=== PATIENT | male | born 1965 | race Two or more races ===

== ENCOUNTER 2018-10-05 06:11 | Day surgery (SDC) | payer OTHER ==
[2018-10-05] MEDS ORDERED: ceFAZolin 2 GM/50 ML 2 GM/50 ML BAG IV ONE (06:26)
[2018-10-05] MEDS ORDERED: LACTATED RINGERS 1,000 ML IV ONE (06:52)
[2018-10-05] MEDS ORDERED: BUPIVACAINE 0.25% PF 30 ML VIAL ONE (07:06)
--- NOTE | 2018-10-05 07:09 | ANESTHESIA ---
Pre-Anesthesia VS, & Labs - Diagnosis L index trigger finger - Procedure L Trigger finger release Vital Signs: Temp Pulse Resp BP Pulse Ox 36.3 C L 56 L 16 128/90 H 99 10/05/18 06:30 10/05/18 06:30 10/05/18 06:30 10/05/18 06:30 10/05/18 06:30 Height 5 ft 11 in Weight (kg) 98.43 kg - NPO >8 hours Home Medications and Allergies Home Medications: Ambulatory Orders No Known Home Medications 09/25/18 No Known Home Medications 09/25/18 Allergies/Adverse Reactions: Allergies Allergy/AdvReac Type Severity Reaction Status Date / Time No Known Drug Allergies Allergy Verified 09/25/18 10:22 Anes History & Medical History - Anesthetic History Anesthesia Complications: reports: No previous complications Family history of Anesthesia Complications: Denies Family history of Malignant Hyperthermia: Denies - Medical History Cardiovascular: reports: None Pulmonary: reports: None Gastrointestinal: reports: None Urinary: reports: None Musculoskeletal: reports: Other Endocrine/Autoimmune: reports: None Skin: reports: None - Surgical History Eyes Ears Nose Throat (EENT): Tonsil/Adenoidectomy Orthopedic: ACL reconstruction, Other Exam General: Alert, Oriented x3, Cooperative Dental: WNL Mouth Openin Fingerbreadth Neck Mobility: Normal Mallampati classification: II Thyromental Distance: 4-6 cm Respiratory: Lungs clear Cardiovascular: Regular rate Mental/Cognitive Status: Alert/Oriented X3 Plan Anesthesia Type: MAC Consent for Procedure(s) Verified and Reviewed: Yes Code Status: Attempt Resuscitation ASA classification: 2-Mild systemic disease Is this case an emergency?: No
[2018-10-05] MEDS ORDERED: BUPIVACAINE 0.25% PF 30 ML VIAL SUBQ ONE ×2 (08:03)
[2018-10-05] MEDS ORDERED: LIDOCAINE 1% 50 ML MDV ONE (08:04)
[2018-10-05] MEDS ORDERED: LIDOCAINE 1% 50 ML MDV SUBQ ONE ×2 (08:04)
[2018-10-05 08:40] VITALS: BP 138/92
[2018-10-05] MEDS ORDERED: oxyCODONE 5 MG TABLET PO PRN (08:49)
[2018-10-05] MEDS ORDERED: ONDANSETRON 4 MG/2 ML VIAL IVP PRN (08:49)
--- NOTE | 2018-10-05 09:03 | OPERATIVE REPORT ---
Operative Report - General Procedure Date: 10/05/18 Planned Procedure: Left Index Finger A1 Hiro Release Pre-Op Diagnosis: Left Index Finger Trigger Procedure Performed: Left Index Finger A1 Hiro Release Post Op Diagnosis: Same - Procedure Note Primary Surgeon: Charles Beck Secondary Surgeon: Ronnie Elaine Anesthesia Provider: None Estimated Blood Loss (mL): 1 Complications: None - Other Other Information/Narrative: Specific procedure: Left index finger A1 hiro release Postoperative Protocol: Dressing off in 5 days. No use of the operative finger for 2 weeks. Suture removal in 2 weeks. Indication For Surgery: 52M with many months of painful catching of the left index finger and intermittent inability to extend the finger. It is mostly present in the morning. Conservative treatment has failed. The risks, benefi ts, and alternatives were discussed. Risks include pain, bleeding, infection, damage to nearby structures, numbness, lack of symptom relief, need for further surgery, DVT, PE, stroke, and . Written consent was obtained. The patient was met in the preoperative holding on the day of the procedure. Operative extremity was signed. Consent was verified. They desire to proceed. They were brought to the operating room and placed in the supine position. A well-padded forearm tourniquet was applied. They were prepped and draped in the standard fashion. A surgical timeout was held will be confirmed the patient procedure, identity, allergies, antibiotics, image,s laterality, and finger. All were in agreement we proceeded. A mixture of 1% lidocaine and quarter percent Marcaine without epinephrine was placed in the operative field. Once adequate anesthesia had been obtained a transverse incision was made in the distal palmar crease overlying the affected digit. Blunt dissection was made with scissors down to the tendon sheath and the tissues were spread in line with the tendon and neurovascular structures. 3 blunt retractors were placed in the A1 hiro was identified. It was cut sharply with a knife from the distal to the proximal edge. A complete release was confirmed with the use of an elevator. Synovitis and thickening of the tendons were seen underneath it. The patient then flexed the digit and extended it without any catching. The wound was irrigated copiously and closed with horizontal mattress sutures. A sterile dressing was applied. He was transferred to the recovery room in good condition.
== END 2018-10-05 06:12 | disposition home or self-care (01) ==
LOC: SDS 06:11
PROVIDERS: ATTEND Orthopaedic Surgery
PROC: 0LN80ZZ Release Left Hand Tendon, Open Approach (ICD-10-PCS; principal; 2018-10-05 07:30)
DX: M65.322 Trigger finger, left index finger (principal)
CPT/HCPCS: 26055; J0690; J7120

== ENCOUNTER 2019-11-15 00:24 | Emergency (ER) | payer OTHER ==
[2019-11-15 00:33] VITALS: BP 155/85
--- NOTE | 2019-11-15 00:59 | ED Physician Documentation ---
History of Present Illness - Stated complaint Stated Complaint: SOA/COUGH/WHEEZING - Chief complaint Chief Complaint: Resp - History obtained from History obtained from: Patient (Patient is a 53-year-old male who presents with a chief complaint of cough, wheezing and shortness of breath. Patient reports he was at cold and flu symptoms off and on for the last week but tonight developed some shortness of breath with some mild wheezing he reports a history of similar episodes previously when he has had cold symptoms or influenza. He denies any hemoptysis or lower extremity swelling denies chest pain denies any history of pulmonary embolism or DVT denies headaches, neck pain, rashes denies fevers currently.) Review of Systems Constitutional: reports: Reviewed and negative Eyes: reports: Reviewed and negative Ears: reports: Reviewed and negative Nose: reports: Reviewed and negative Throat: reports: Reviewed and negative Cardiac: reports: Reviewed and negative Respiratory: reports: Dyspnea, Cough, Wheezing GI: reports: Reviewed and negative : reports: Reviewed and negative Skin: reports: Reviewed and negative Musculoskeletal: reports: Reviewed and negative Neurologic: reports: Reviewed and negative Psychiatric: reports: Reviewed and negative Endocrine: reports: Reviewed and negative Immunocompromised: reports: Reviewed and negative PD PAST MEDICAL HISTORY - Past Medical History Cardiovascular: None Respiratory: None Endocrine/Autoimmune: None GI: None : None HEENT: None Psych: None Musculoskeletal: Other Derm: None - Past Surgical History Ortho: ACL reconstruction, Other HEENT: Tonsil/Adenoidectomy - Present Medications Home Medications: Ambulatory Orders Medication Instructions Recorded Confirmed Albuterol Sulf [Ventolin Hfa 1 - 2 puffs INH Q4HR PRN #1 inhaler 11/15/19 Inhaler] Lisinopril [Zestril] 10 mg PO DAILY 11/15/19 11/15/19 Simvastatin 10 mg PO DAILY 11/15/19 11/15/19 predniSONE [Prednisone] 50 mg PO DAILY #5 tablet 11/15/19 - Allergies Allergies/Adverse Reactions: Allergies Allergy/AdvReac Type Severity Reaction Status Date / Time No Known Drug Allergies Allergy Verified 11/15/19 00:33 PD ED PE NORMAL - Vitals Vital signs reviewed: Yes - General General: Alert and oriented X 3, No acute distress, Well developed/nourished - HEENT HEENT: Atraumatic, PERRL, Ears normal, Moist mucous membranes, Pharynx benign, Dentition benign - Neck Neck: Supple, no meningeal sign, No adenopathy, No JVD - Cardiac Cardiac: RRR, No murmur, Strong equal pulses - Respiratory Respiratory: No respiratory distress, Clear bilaterally, Other (mild diffuse wheezing without resp distress, no use of accessory muscle, trachea midline, no crackles. 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, No motor deficit, No sensory deficit, Normal speech - Psych Psych: Normal mood, Normal affect Results - Vitals Vitals: Vital Signs - 24 hr 11/15/19 00:29 Temperature 37.0 C Heart Rate 85 Respiratory 16 Rate Blood Pressure 155/85 H O2 Saturation 98 Oxygen O2 Source Room air - EKG (time done) 01:07 Rate: Other (no stemi) - Labs Labs: Laboratory Tests 11/15/19 01:05 Troponin I High Sens < 2.3 L PD MEDICAL DECISION MAKING - ED course Complexity details: re-evaluated patient (02:28 after receiving breathing treatment patient has clear lung sounds, feels much better.), considered differential (hx and pe are consistent with viral syndrome and reactive airway disease. hx and exam not consistent with acs, cannot perc patient out because of age otherwise all perc screening is negative.) Departure - Departure Disposition: 01 Home, Self Care Clinical Impression: Dyspnea Qualifiers: Dyspnea type: unspecified Qualified Code(s): R06.00 - Dyspnea, unspecified Reactive airway disease Qualifiers: Asthma severity: unspecified severity Asthma persistence: unspecified Asthma complication type: uncomplicated Qualified Code(s): J45.909 - Unspecified asthma, uncomplicated Condition: Stable Instructions: ED Reactive Airway Disease Follow-Up: FABIEN MORALES MD [Primary Care Provider] - 11/15/19 Prescriptions: Albuterol Sulf [Ventolin Hfa Inhaler] 1 - 2 puffs INH Q4HR PRN #1 inhaler PRN Reason: Shortness Of Air/Wheezing predniSONE [Prednisone] 50 mg PO DAILY #5 tablet
[2019-11-15] MEDS ORDERED: predniSONE 20 MG TABLET PO STA (01:01)
--- NOTE | 2019-11-15 01:37 | XRAY Report ---
Reason: sob Procedure Date: 11/15/2019 Accession Number: [id number] / [id number] Procedure: XR - Chest 2 View X-Ray CPT Code: 26261 Final Report FULL RESULT: EXAM: CHEST RADIOGRAPHY EXAM DATE: 11/15/2019 01:27 AM. CLINICAL HISTORY: Sob. COMPARISON: None. TECHNIQUE: 2 views. FINDINGS: Lungs/Pleura: No focal opacities evident. No pleural effusion. No pneumothorax. Normal volumes. Mediastinum: Heart and mediastinal contours are unremarkable. Other: None. IMPRESSION: Normal 2-view chest radiography. [facility]
[2019-11-15] MEDS ORDERED: IPRATROPIUM/ALBUTEROL 3 ML NEB INH STA (02:19)
== END 2019-11-15 02:43 | disposition home or self-care (01) ==
LOC: ED 00:24
DX: J45.909 Unspecified asthma, uncomplicated (principal)
CPT/HCPCS: 36415; 71046; 84484; 93005; 94664; 99283; 99284; J7512

== ENCOUNTER 2021-08-31 08:15 | Outpatient (CLI) | payer OTHER ==
--- NOTE | 2021-08-31 13:21 | XRAY Report ---
PROCEDURE: Knee 4 View RT INDICATIONS: RIGHT KNEE PAIN TECHNIQUE: 3 views of the right knee(s) were acquired. AP weightbearing views of both knees. COMPARISON: August 06, 2015. FINDINGS: BONES/JOINT: No acute, displaced fracture or dislocation. Right: Trace suprapatellar joint effusion.Mild narrowing of the medial compartment joint space. Tibia l spine osteophytosis. Left: Anterior cruciate ligament repair. Moderate to advanced medial and moderate lateral joint space loss with osteophytosis. SOFT TISSUES: No significant abnormality. IMPRESSION: 1.Mild right medial compartment joint space loss. Reviewed by: Clement Hooks MD on 08/31/2021 1:08 PM PST Approved by: Clement Hooks MD on 08/31/2021 1:08 PM PST Station ID: [id number]
== END 2021-08-31 23:59 | disposition home or self-care (01) ==
LOC: DI.N 08:15
PROVIDERS: ATTEND Physician Assistant
DX: M25.861 Other specified joint disorders, right knee (principal); M25.561 Pain in right knee

== ENCOUNTER 2022-06-22 10:39 | Day surgery (SDC) | payer OTHER ==
[2022-06-22] MEDS ORDERED: PROPOFOL 500 MG/50 ML 500 MG/50 ML VIAL ONE (11:03)
[2022-06-22] MEDS ORDERED: LACTATED RINGERS 1,000 ML IV ONE ×2 (11:03→12:17)
[2022-06-22] MEDS ORDERED: MIDAZOLAM 2 MG/2 ML VIAL ONE (11:05)
--- NOTE | 2022-06-22 11:09 | ANESTHESIA ---
Pre-Anesthesia VS, & Labs - Diagnosis screening - Procedure colonoscopy Height: 5 ft 11 in Weight (kg): 99.1 kg Body Mass Index: 30.4 BMI Classification: Obese - NPO >8 hours Home Medications and Allergies Home Medications: Ambulatory Orders PredniSONE [PredniSONE INTENSOL] 06/21/22 PredniSONE [PredniSONE INTENSOL] 06/21/22 Allergies/Adverse Reactions: Allergies Allergy/AdvReac Type Severity Reaction Status Date / Time No Known Drug Allergies Allergy Verified 11/15/19 00:33 Anes History & Medical History - Anesthetic History Anesthesia Complications: reports: No previous complications Family history of Anesthesia Complications: Denies Family history of Malignant Hyperthermia: Denies - Medical History Cardiovascular: reports: None Pulmonary: reports: None Gastrointestinal: reports: None Urinary: reports: None Musculoskeletal: reports: Other Endocrine/Autoimmune: reports: None Skin: reports: None - Surgical History Eyes Ears Nose Throat (EENT): reports: Tonsil/Adenoidectomy Orthopedic: reports: ACL reconstruction, Other Exam General: Alert, Oriented x3, Cooperative Dental: WNL Mouth Openin Fingerbreadth Neck Mobility: Normal Mallampati classification: II Thyromental Distance: 4-6 cm Respiratory: Lungs clear, Normal breath sounds, No respiratory distress Cardiovascular: Regular rate Neurological: Normal speech Mental/Cognitive Status: Alert/Oriented X3, Normal for patient Cognitive Status: Within normal limits Plan Anesthesia Type: Total IV Consent for Procedure(s) Verified and Reviewed: Yes Code Status: Attempt Resuscitation ASA classification: 2-Mild systemic disease Is this case an emergency?: No
[2022-06-22] MEDS ORDERED: SIMETHICONE 40 MG/0.6 ML 30 ML BOTTLE PO ONE (12:04)
[2022-06-22 12:59] VITALS: BP 129/70
--- NOTE | 2022-06-22 13:18 | ANESTHESIA POST OP EVALUATION ---
Anesthesia Post Eval - Post Anesthesia Eval Vitals: Last Vital Signs Temp 36.6 C 06/22/22 12:55 Pulse 68 06/22/22 12:55 Resp 16 06/22/22 12:55 BP 129/70 06/22/22 12:55 Pulse Ox 99 06/22/22 12:55 O2 Flow Rate CV Function Including HR & BP: Stable Pain Control: Satisfactory Nausea & Vomiting: Negative Mental Status: Baseline Respiratory Status: Airway Patent Hydration Status: Satisfactory Anesthesia Complications: None
== END 2022-06-22 10:40 | disposition home or self-care (01) ==
LOC: SDS 10:39
PROVIDERS: ATTEND Surgery
DX: Z12.11 Encounter for screening for malignant neoplasm of colon (principal); N40.0 Benign prostatic hyperplasia without lower urinary tract symptoms; E66.9 Obesity, unspecified; Z68.30 Body mass index [BMI] 30.0-30.9, adult
CPT/HCPCS: 45378; A9270; J7120

== ENCOUNTER 2023-03-19 06:59 | Outpatient (CLI) | payer OTHER ==
--- NOTE | 2023-03-21 13:32 | MRI Report ---
PROCEDURE: SHOULDER WO - RT INDICATIONS: SHOULDER PAIN TECHNIQUE: Noncontrast oblique coronal T2 fast spin echo with fat saturation, oblique sagittal T1 spin echo and T2 fast spin echo with fat saturation, axial T1 spin echo and T2 fast spin echo with fat saturation t hrough the shoulder. COMPARISON: None. FINDINGS: Image quality: Excellent. Rotator cuff: Severe tendinosis of the supraspinatus tendon. There is high-grade partial-thickness te ar of the distal supraspinatus tendon involving the bursal surface and footprint. Moderate infraspinatus and subscapularis tendinosis without high-grade tear. No rotator cuff muscle atrophy on sagittal images. Bones and bursae: No bone marrow contusions or fractures. Moderate acromioclavicular and glenohumera l joint degeneration. The acromion demonstrates conventional anatomy, without an os acromiale. Small subacromial/subdeltoid bursal fluid is present, suggesting mild bursitis. Capsule and soft tissues: There is degenerative fraying of the anterior and superior labrum. In the a bsence of intra-articular contrast, the glenohumeral ligaments appear intact. The long head of the b iceps tendon demonstrates normal location and morphology. The rotator interval appears normal, witho ut fibrosis. The coracohumeral ligament is normal in thickness. IMPRESSION: 1. Severe tendinosis of the supraspinatus tendon with high-grade partial-thickness tear. 2. Moderate infraspinatus and subscapularis tendinosis without high-grade tear. 3. Moderate acromioclavicular and glenohumeral joint degeneration. 4. Mild subacromial/subdeltoid bursitis. 5. Degenerative anterior and superior labral fraying. Reviewed by: Jax Lovett MD on 03/21/2023 11:31 AM PDT Approved by: Jax Lovett MD on 03/21/2023 11:31 AM PDT Station ID: [id number]
== END 2023-03-19 07:00 | disposition home or self-care (01) ==
LOC: DI 06:59
PROVIDERS: ATTEND Physician Assistant
DX: M75.111 Incomplete rotator cuff tear or rupture of right shoulder, not specified as traumatic (principal); M19.011 Primary osteoarthritis, right shoulder; M75.51 Bursitis of right shoulder; M25.811 Other specified joint disorders, right shoulder